=== PATIENT | male | born 1975 | race Two or more races ===

== ENCOUNTER 2016-12-07 17:03 | Emergency (ER) | payer SELFPAY ==
[~2016-12-07] VITALS: Ht 149.9 cm; Wt 68.0 kg
[2016-12-07] MEDS ORDERED: TDAP [DIPH/PERTUSSIS/TET] 0.5 ML VIAL IM ONE ×2 (17:30→17:48)
[2016-12-07] MEDS ORDERED: LIDOCAINE 1% INJ 50 ML MDV IJ ONE (17:30)
--- NOTE | 2016-12-07 17:31 | NUR ---
[facility] [employer] DRIVER AT BEDSIDE
[2016-12-07 18:00] VITALS: BP 132/69
[2016-12-07] MEDS ORDERED: LIDOCAINE 1%-EPI 1:100,000 50 ML VIAL IJ ONE (18:00)
[2016-12-07] MEDS ORDERED: LIDOCAINE 1%-EPI 1:100,000 20 ML VIAL ONE (18:09)
--- NOTE | 2016-12-07 18:52 | NUR ---
Patient discharged to home in stable condition. Written and verbal after care instructions given. Patient verbalizes understanding of instruction.
--- NOTE | 2016-12-07 18:52 | NUR ---
RAMIRO HOOD AT FOR WOUND CARE.
== END 2016-12-07 18:53 | disposition home or self-care (01) ==
LOC: ER 17:06
DX: S61.011A Laceration without foreign body of right thumb without damage to nail, initial encounter (principal); W25.XXXA Contact with sharp glass, initial encounter; Y93.89 Activity, other specified; Y92.89 Other specified places as the place of occurrence of the external cause; Y99.8 Other external cause status
CPT/HCPCS: 12002; 73130; 90471; 90715; 99283; A4606; A6402 ×2; J3490 ×3; Z7610